=== PATIENT | male | born 1960 | race African-American/Black ===

== ENCOUNTER 2019-04-26 15:40 | Outpatient (CLI) | payer BC, OTHER, SELFPAY ==
--- NOTE | ~2019-04-26 | US_ITS ---
EXAMINATION: US venous doppler [facility] DATE: 04/26/2019 16:51 INDICATION: Calf pain. TECHNIQUE: Grayscale ultrasound images without and with compression and Doppler ultrasound images of the bilateral lower extremity veins were obtained. COMPARISON: Ultrasound 07/21/2014 FINDINGS: The visualized portions of right common femoral vein, profunda (deep) femoral vein, femoral vein, pop liteal vein, peroneal veins, posterior tibial veins, and greater saphenous vein outflow are patent. The visualized portions of left common femoral vein, profunda femoral vein, femoral vein, popliteal v ein, peroneal veins, posterior tibial veins, and greater saphenous vein outflow are patent. IMPRESSION: 1. No deep venous thrombosis. Reviewed, dictated and finalized at location A.
== END 2019-04-26 15:41 | disposition home or self-care (01) ==
PROVIDERS: Visit Provider Orthopaedic Surgery
DX: M79.669 Pain in unspecified lower leg (principal); I82.409 Acute embolism and thrombosis of unspecified deep veins of unspecified lower extremity; M79.89 Other specified soft tissue disorders
CPT/HCPCS: 93970

== ENCOUNTER 2020-04-14 13:03 | Outpatient (CLI) | payer BC, OTHER, SELFPAY ==
--- NOTE | ~2020-04-14 | US_ITS ---
EXAMINATION: US venous doppler [facility] EXAM DATE: 04/14/2020 14:11 INDICATION: Right leg swelling. TECHNIQUE: Multiple grayscale, color flow and Doppler images of the right lower extremity deep venous system were obtained and reviewed. Comparison is made to prior examination from 04/26/2019. FINDINGS: The right common femoral, femoral and profunda veins demonstrate normal color flow, respira tory variation, augmentation and compressibility. Compressibility, color flow confirmed within the r ight popliteal, posterior tibial, peroneal, and greater saphenous veins. IMPRESSION: No right lower extremity deep venous thrombosis. Reviewed, dictated and finalized at location B. [employer]OR
--- NOTE | ~2020-04-14 | US_ITS ---
EXAMINATION: US arterial ankle brachial ind EXAM DATE: 04/14/2020 14:11 INDICATION: Cold extremities, swelling. TECHNIQUE: Segmental pressures and plethysmographic and Doppler waveforms of the brachial and lower e xtremity arteries were obtained. There is no prior study for comparison. FINDINGS: Right and left brachial artery pressures of 174 mm Hg and 167 mm Hg, respectively, are concordant (no rmal difference <= 30 mmHg). RIGHT LEG: The ankle-brachial index (LARISSA) is could not obtain (normal >= 0.9-1). The great toe-brachial index (TBI) is 0.49 (normal >= 0.65). The lower extremity ratios, segmental pressure gradients as follows; Dorsalis pedis: Could not obtain ( mmHg). Posterior tibial: Could not obtain ( mmHg). (Normal gradients <= 20-30 mmHg between adjacent levels on the same leg or the same levels on the two legs). Arterial waveforms are biphasic dorsalis pedis, monophasic posterior tibial. LEFT LEG: The ankle-brachial index (LARISSA) is could not obtain (normal >= 0.9-1). The great toe-brachial index (TBI) is 1.10 (normal >= 0.65). The lower extremity ratios, segmental pressure gradients as follows; Dorsalis pedis: Could not obtain ( mmHg). Posterior tibial: Could not obtain ( mmHg). (Normal gradients <= 20-30 mmHg between adjacent levels on the same leg or the same levels on the two legs). Arterial waveforms are biphasic dorsalis pedis, monophasic posterior tibial. IMPRESSION: 1. Could not obtain ABIs, could not Cuff Occlude calf arteries. 2. Mildly decreased right toe brachial index, normal left toe brachial index. Reviewed, dictated and finalized at location B. ERY COUNSELOR
== END 2020-04-14 13:04 | disposition home or self-care (01) ==
PROVIDERS: Visit Provider Nurse Practitioner Family
DX: M79.89 Other specified soft tissue disorders (principal)
CPT/HCPCS: 93922; 93971